=== PATIENT | male | born 1980 | race Caucasian/White ===

== ENCOUNTER 2024-07-31 14:33 | Emergency (ER) | payer SELFPAY ==
[2024-07-31 14:51] VITALS: BP 143/71
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
[2024-07-31] MEDS: MOTRIN 800 MG PO (17:57)
[2024-07-31 17:59] VITALS: BP 128/74
== END 2024-07-31 18:20 | disposition home or self-care (01) ==
LOC: EMR 14:33
PROVIDERS: EMERGENCY PHYSICIAN Emergency Medicine
DX: S39.012A Strain of muscle, fascia and tendon of lower back, initial encounter (principal); S16.1XXA Strain of muscle, fascia and tendon at neck level, initial encounter; V49.49XA Driver injured in collision with other motor vehicles in traffic accident, initial encounter
CPT/HCPCS: 99284; 70450; 72125